=== PATIENT | female | born 1950 | race Caucasian/White ===

== ENCOUNTER 2021-07-17 00:54 | Day surgery (SDC) | payer MEDICARE, SELFPAY ==
[2021-07-16 15:13] VITALS: BMI 39.9
--- NOTE | 2021-07-16 15:32 | PC.NURSE ---
Report to the Outpatient Waiting Room, entrance under the green pavilion located off [facility], at time ___0800____ on date ___07/16/21____. OR Time: ___999 . - You and your visitor will be asked a series of questions to screen for COVID 19 for your protection. - A mask is required within the hospital. Preoperative COVID Testing Requirements: NONE No COVID Test needed if: (proof is required; if not received patient will have Rapid Test prior to entry) - Patient has received COVID Vaccine at least 14 days prior to procedure date or - Patient has positive COVID test result within last 90 days of surgery date. COVID Test needed if above criteria is not met If not COVID vaccinated a COVID test must be conducted within 72 hours of surgery and patient is asked to isolate self from time of testing until procedure. You will go to the [facility] for your COVID testing. The [facility] is located at the corner of [address] [facility]. You will only be called if COVID results are positive and your surgeon may reschedule your elective surgery date. Patients may have clear liquids (water, carbonated beverages, clear teas, apple juice) until 3 hours prior to surgery (0700 AM) with a maximum of 20 ounces. - No food from midnight until time of surgery - Infants may have breast milk until 4 hours before surgery, infant formula 6 hours prior to surgery. - Children will be allowed to drink immediately following surgery. If applicable, please bring a bottle or sippy cup to assist with drinking. Juice, water, soda, and popsicles are readily available. For infants on formula, please bring formula the day of surgery. Pacifiers are allowed. Take the following medications with a SIP of water the morning of surgery: ___MEDROXYPROGESTERONE,___ Medications to discontinue per physician N/A Date to take last dose Please no make-up, nail puerto rican, hairspray, perfume, deodorant, or body powder the day of surgery. No jewelry (including any body piercings) or valuables the day of surgery, leave them at home. Please take a shower or bath the night before, or the morning of, surgery with an antibacterial soap. Wear comfortable, loose fitting clothing. Children are encouraged to wear pajamas. - Jewelry must be removed prior to entering the operating room. Rings and piercings that are not removed may be cut off. - The hospital will not accept responsibility for valuables. - Please leave all valuables, including medications, at home the day of surgery. If you are going home after surgery, a licensed commercial trailer truck driver must drive you home. - NO public transportation without another adult. - We recommend that an adult stay with you for 24 hours following discharge. - We also recommend that you do not drive, make important decision, drink alcoholic beverages, or take any drugs that were not prescribed by your health care provider for at least 24 hours after your discharge time. For Pediatric surgeries, we recommend two adults accompany the child home (only one inside the building at this time). One visitor will be allowed to accompany the patient into the hospital. Patients visitor will be instructed to remain with patient at all times or leave the building. We will allow the visitor to come back to the postoperative area when patient is ready. Follow any additional instructions given to you from your surgeon. Telephone instructions given to ___PT and asked if any additional questions and then verbalized understanding. Patient advised to call surgeon office or pre surgery nurse liaison [phone] if any additional questions.
--- NOTE | 2021-07-17 06:46 | P.PNAN_ITS ---
Anes - Eval Pre Procedure Procedure: Operation Date: 07/17/21 10:00 Proposed Procedures p Hysteroscopy Dilation and Curettage - Devyn Finnegan MD Date/Time: 07/17/21 06:46 Pre Op Diagnosis: post menopausal bleeding Patient Data Age: 70 Gender: F Height: 1.6 m Weight: 102.27 kg Allergies Allergy/AdvReac Type Severity Reaction Status Date / Time adhesive AdvReac SKIN Verified 07/16/21 15:09 IRRITATION hydrocodone AdvReac Nausea and Verified 07/16/21 15:09 Vomiting Home Medications Medication Instructions Recorded Confirmed Type allopurinol 300 mg PO BID 07/16/21 07/16/21 History ascorbic acid (vitamin C) [Vitamin 500 mg PO DAILY 07/16/21 07/16/21 History C] cholecalciferol (vitamin D3) 25 mcg PO DAILY 07/16/21 07/16/21 History magnesium 500 mg PO DAILY 07/16/21 07/16/21 History medroxyprogesterone 10 mg DAILY 07/16/21 07/16/21 History meloxicam 7.5 mg PO DAILY 07/16/21 07/16/21 History sitagliptin [Januvia] 100 mg DAILY 07/16/21 07/16/21 History Patient hx anesthesia problems: none Family hx anesthesia problems: none Results Review: All pre-operative results and documents have been reviewed as part of the pre-operative evaluation. [facility] Past Medical History Medical History (Updated 07/17/21 @ 06:49 by Devyn Hoyt MD) Breast cancer Chronic back pain Diabetes Morbid obesity Surgical History Surgical History (Updated 07/17/21 @ 06:49 by Devyn Hoyt MD) H/O arthroscopic knee surgery H/O laparoscopy History of section Social History Social History Smoking status: Never smoker Second hand tobacco smoke exposure: No Alcohol intake: never Substance use: never Substance use type: does not use Living arrangements: with family Spiritual care concerns: No Exam Day of Procedure 07/17/21 06:46 Patient weight: morbidly obese
--- NOTE | 2021-07-17 07:01 | P.HP_ITS ---
H&P: HPI History of Present Illness Date/Time: 07/17/21 07:01 Mood year old 1 para is postmenopausal by 20+ years admitted for hysteroscopy dilatation curettage secondary to bleeding. She is wheelchair- bound and history of a benign left ovarian cyst removal. Fairly had a D&C about 10 years ago which was negative. She does suffer from diabetes and has factor 5 laden deficiency. She had again a steroid shot and also bleeding and she has been bleeding since per our risks and benefits were reviewed by Chief Complaint: Postmenopausal bleeding Review of Systems Review of Systems: All systems reviewed & are unremarkable except as noted in HPI and below PMFSH Past Medical History Medical History Breast cancer Chronic back pain Diabetes Morbid obesity Surgical History Surgical History H/O arthroscopic knee surgery H/O laparoscopy History of section Social History Social History Smoking status: Never smoker Second hand tobacco smoke exposure: No Alcohol intake: never Substance use: never Substance use type: does not use Living arrangements: with family Spiritual care concerns: No Meds Home Medications and Allergies Home Medications Medication Instructions Recorded Confirmed Type allopurinol 300 mg PO BID 07/16/21 07/16/21 History ascorbic acid (vitamin C) [Vitamin 500 mg PO DAILY 07/16/21 07/16/21 History C] cholecalciferol (vitamin D3) 25 mcg PO DAILY 07/16/21 07/16/21 History magnesium 500 mg PO DAILY 07/16/21 07/16/21 History medroxyprogesterone 10 mg DAILY 07/16/21 07/16/21 History meloxicam 7.5 mg PO DAILY 07/16/21 07/16/21 History sitagliptin [Januvia] 100 mg DAILY 07/16/21 07/16/21 History Allergies Allergy/AdvReac Type Severity Reaction Status Date / Time adhesive AdvReac SKIN Verified 07/16/21 15:09 IRRITATION hydrocodone AdvReac Nausea and Verified 07/16/21 15:09 Vomiting Exam Const: General: no acute distress Eyes: General: appearance normal, both eyes and all related structures Neck: Neck: supple and no JVD Thyroid: thyroid normal Resp: Effort & Inspection: normal respiratory effort Auscultation: clear to auscultation bilaterally Cardio: Rate: regular rate Rhythm: regular rhythm GI: Inspection: non-distended GI Palp: Yes Soft to palpation, No Tenderness to palpation present (GI) and No Guarding due to palpation present (GI) Auscultation: normal bowel sounds Skin: General skin exam: no rashes or lesions noted Extrem: General: normal to inspection and no edema Psych: Mental Status: mental status grossly normal Affect: normal affect Assessment and Plan Additional Plan Impression: Postmenopausal bleeding Plan: Hysteroscopy/dilatation curettage
--- NOTE | 2021-07-17 07:03 | WPDHPUPDATE1 ---
History and Physical Update Update Date/Time: 07/17/21 07:03 History and Physical has been reviewed, including an updated exam of the patient. There are NO changes in the patient's condition. Risks, benefits, and alternatives have been discussed and questions answered. Patient agrees to proceed with procedure.
[2021-07-17] MEDS: ACETAMINOPHEN 500 MG TABLET 1000 MG PO (08:27)
[2021-07-17 08:30] VITALS: BP 145/69; PULSE 73; RESP 18; TEMP 36.1; O2SAT 98; BMI 44.1
[2021-07-17] MEDS: LACTATED RINGERS 1,000 ML 30 ML IV CONT (08:50)
[2021-07-17 08:54] LABS: Hematocrit 42.7 % (37.0-47.0); Hemoglobin 13.7 g/dL (12.0-15.0)
--- NOTE | 2021-07-17 09:05 | WPDANESEFPP ---
Anes - Eval Final PreProcedure Day of Procedure 07/17/21 09:05 Patient weight: morbidly obese Heart: regular rate and rhythm Lungs: clear to auscultation Airway: Mallampati scale class II Neurological: alert and oriented Last oral intake: >/= 8 hours ASA classification: III Emergent: no Anesthetic plan: proceed Anesthesia type and monitoring: general GIVS and standard monitoring Results Review: All pre-operative results and documents have been reviewed as part of the pre-operative evaluation. Informed Consent: The patient's anesthetic plan and its attendant risks and benefits were discussed with the patient/family/POA. Questions were solicited and answers provided to the satisfaction of the patient/family/POA.
--- NOTE | 2021-07-17 09:10 | SUR.PREOP ---
0800; PT STATES SHE GETS LYMPHEDEMA IN BILAT ARMS. ASKED PT IF SHE USUALLY HAS HER IV IN A FOOT. PT STATES NO, SHE WOULD LIKE THE IV IN EITHER ARM.
--- NOTE | 2021-07-17 09:49 | P.OP_ITS ---
Procedure Note - Detailed Date of Procedure 07/17/21 Pre-op Diagnosis post menopausal bleeding Post-op Diagnosis Same Procedure Performed Hysteroscopy/dilatation curettage Surgeon Devyn Finnegan MD Anesthesia MAC and Local Indications This 70-year-old female with postmenopausal bleeding follow injection with IM steroid Findings Uterus sounded to about 8cm. There were some blood clots that were present but node definitive evidence of pathology noted. She be noted this was a very difficult procedure secondary to the patient's obesity and none parity. Description of Procedure Patient was prepped draped in the normal sterile fashion placed in the dorsal lithotomy position. Under excellent IV sedation weighted speculum placed in posterior fornix vagina. Anterior lip of the cervix grasped with single-tooth tenaculum. 2.5cc of 1% xylocaine anesthesia placed at 2, 4, 8, 10:00 a.m. of the cervix. A long slender speculum was placed in the vagina and the fitch were noted to cava and lateral wall retractors were used and the cervix was grasped with a single-tooth tenaculum. 2.5cc of 1% xylocaine anesthesia placed at 2, 4, 8, 10:00 a.m. of the cervix. Serial dilatation with fragmented dilators per formed followed passes the 5. Hysteroscope using normal saline as visualizing medium. Some clots and irregularity were noted but no evidence of abnormal masses were seen. The uterus was scraped over the entire 360? removing a moderate amount of tissue until a good grating sound was heard. When no further tissue removed instruments removed all were accounted for. Blood loss was estimated at5cc. All sponge, needle, instrument counts were correct. There were no immediate complications Estimated Blood Loss 5 Drains No Packing No Pathology Yes Complications No immediate complications Condition Stable Disposition PACU
[2021-07-17 09:55] VITALS: BP 121/71; PULSE 80; RESP 20; O2SAT 100
[2021-07-17 09:57] LABS: Glucose Point of Care 144 mg/dl (65-105)
[2021-07-17 10:13] LABS: Anion Gap 11 mmol/L (8-16); Blood Urea Nitrogen 19 mg/dL (7-17); Calcium 9.3 mg/dL (8.4-10.2); Carbon Dioxide 25 mmol/L (22-30); Chloride 102 mmol/L (98-107); Estimated CRCL calculation 78 ml/min; Estimated Glomerular Filt Rate > 60; Glucose 156 mg/dL (65-110); Potassium 4.5 mmol/L (3.4-5.0); Sodium 138 mmol/L (137-145)
[2021-07-17] MEDS: fentaNYL CITRATE INJ (*CRX) 100 MCG/2 ML VIAL 25 MCG IV PUSH ×2 (10:24→10:27)
[2021-07-17 10:25] VITALS: BP 110/75; PULSE 62; RESP 16
== END 2021-07-17 11:00 | disposition home or self-care (01) ==
PROVIDERS: Visit Provider Obstetrics & Gynecology
PROC: 0U5B8ZZ Destruction of Endometrium, Via Natural or Artificial Opening Endoscopic (ICD-10-PCS; CPT 58563; principal; 2021-07-17 10:00)
DX: N95.0 Postmenopausal bleeding (principal); N85.8 Other specified noninflammatory disorders of uterus; E11.9 Type 2 diabetes mellitus without complications; Z79.84 Long term (current) use of oral hypoglycemic drugs; Z85.3 Personal history of malignant neoplasm of breast; E66.01 Morbid (severe) obesity due to excess calories; Z68.41 Body mass index [BMI] 40.0-44.9, adult
CPT/HCPCS: 58558; 36415; 80048; 82948; 85014; 85018; 88305; A9270; J2704; J3010; J7030; J7120

== ENCOUNTER 2024-01-30 02:22 | Day surgery (SDC) | payer MEDICARE, SELFPAY ==
[2024-01-24 09:31] VITALS: BMI 39.0
--- NOTE | 2024-01-24 09:32 | PC.NURSE ---
Report to the Outpatient Waiting Room, entrance under the green pavilion located off [facility], at time _1100_ on date _[id number]_. Planned Procedure Time: _1pm_.? Time changes happen often and if your time is changed the preop area will call you the afternoon before. - You and your visitor will be asked to self-screen and do not enter if you have any COVID symptoms. Please call surgeon if you need to reschedule. - A mask is optional within the hospital at this time. Patients may have clear liquids (water, carbonated beverages, clear teas, apple juice) until 3 hours prior to surgery with a maximum of 20 ounces. - No food from midnight until time of surgery and no smoking Take only the following medications with a SIP of water on the morning of surgery: ___None DO NOT STOP ANY OF YOUR OTHER PRESCRIPTION MEDICATIONS PRIOR TO SURGERY EXCEPT THE FOLLOWING Medications to discontinue per physician All vitamins____ Stop 01-27-2024 Please no make-up, nail azerbaijani, hairspray, perfume, deodorant, or body powder the day of surgery.? No jewelry (including any body piercings) or valuables the day of surgery, leave them at home.? Please take a shower or bath the night before, or the morning of, surgery with an antibacterial soap.? Wear comfortable, loose fitting clothing.? - Jewelry must be removed prior to entering the operating room.? Rings and piercings that are not removed may be cut off. - The hospital will not accept responsibility for valuables.? - Please leave all valuables, including medications, at home the day of surgery. If you are going home after surgery, a licensed tank wagon driver must drive you home.? - NO public transportation without another adult if you receive anesthesia. - We recommend that an adult stay with you for 24 hours following discharge. - We also recommend that you do not drive, make important decision, drink alcoholic beverages, or take any drugs that were not prescribed by your health care provider for at least 24 hours after your discharge time. Follow any additional instructions given to you from your surgeon. Telephone instructions given to __Cathy__and asked if any additional questions and then verbalized understanding. Patient advised to call surgeon office or pre surgery nurse liaison [phone] if any additional questions.
--- NOTE | 2024-01-26 07:31 | PM.IMHP ---
H&P: HPI History of Present Illness Date/Time: 01/26/24 07:31 Chief Complaint: Patient complains of a perivaginal infection Narrative: [age] year female severe diabetes and a draining abscess which was unable to be examined in the office secondary to large size and inability to the examined in the office. [facility] Past Medical History Medical History Acquired lymphedema of lower extremity Breast cancer Chronic back pain Diabetes Morbid obesity Surgical History Surgical History H/O arthroscopic knee surgery H/O elbow surgery H/O laparoscopy H/O wrist surgery History of section Hx laparoscopic cholecystectomy Hx of removal of ovary Social History Social History Smoking status: Never smoker Second hand tobacco smoke exposure: No Alcohol intake: never Substance use: never Substance use type: does not use Living arrangements: with family Gender identity (if verbalized by the patient): Female Sexual Orientation (if Verbalized by the Patient): Straight or Heterosexual Spiritual care concerns: No Meds Home Medications and Allergies Home Medications Medication Instructions Recorded Confirmed Type allopurinol 300 mg tablet 300 mg PO BID 07/16/21 01/24/24 History ascorbic acid (vitamin C) 500 mg 500 mg PO DAILY 07/16/21 01/24/24 History tablet (Vitamin C) cholecalciferol (vitamin D3) 25 25 mcg PO DAILY 07/16/21 01/24/24 History mcg (1,000 unit) capsule magnesium 500 mg tablet 500 mg PO DAILY 07/16/21 01/24/24 History sitagliptin phosphate 100 mg 100 mg PO DAILY 07/16/21 01/24/24 History tablet (Januvia) doxycycline hyclate 100 mg capsule 100 mg PO DAILY 01/24/24 01/24/24 History hydroxyzine HCl 25 mg tablet 25 mg PO DAILY PRN Anxiety 01/24/24 01/24/24 History Allergies Allergy/AdvReac Type Severity Reaction Status Date / Time codeine Allergy Severe Difficulty Verified 01/24/24 09:19 Breathing hydrocodone Allergy Severe Difficulty Verified 01/24/24 09:19 Breathing adhesive AdvReac SKIN Verified 01/24/24 09:19 IRRITATION Exam Const: General: cooperative and comfortable Nutritional Appearance: obese Orientation/consciousness: oriented to person, oriented to place and oriented to time HENMT: Head: normal to inspection Resp: Effort & Inspection: normal respiratory effort Cardio: Rate: regular rate Rhythm: regular rhythm Heart sounds: S1 normal heart sound present and S2 normal heart sound present GI: Inspection: Pannus present and obesity : External Female Exam: other (Draining lesion the left groin) Assessment and Plan Assessment and plan (1) Perineal abscess: Code(s): L02.215 - Cutaneous abscess of perineum Status: Acute Assessment and Plan: Proceed with biopsy and drainage of this lesion
--- NOTE | 2024-01-30 06:50 | WPDHPUPDATE1 ---
History and Physical Update Update Date/Time: 01/30/24 06:50 History and Physical has been reviewed, including an updated exam of the patient. There are NO changes in the patient's condition. Risks, benefits, and alternatives have been discussed and questions answered. Patient agrees to proceed with procedure.
--- NOTE | 2024-01-30 10:59 | PM.IMHP ---
H&P: HPI History of Present Illness Date/Time: 01/30/24 10:59 Chief Complaint: chronic left perineal abscess Narrative: Cassie is a 73 y/o female who presents to the office today at the request of Dr. Devyn Vaughan for an evaluation of a left groin abscess. Patient reports she has noticed this abscess 8-9 months ago and it has drained several times. Patient states she has tried several antibiotic creams without relief. Patient reports pain, fevers, chills and bloody drainage/discharge. Patient has a history of breast cancer in 2004. Review of Systems Review of Systems: All systems reviewed & are unremarkable except as noted in HPI and below PMFSH Past Medical History Medical History Acquired lymphedema of lower extremity Breast cancer Chronic back pain Diabetes Morbid obesity Surgical History Surgical History H/O arthroscopic knee surgery H/O elbow surgery H/O laparoscopy H/O wrist surgery History of section Hx laparoscopic cholecystectomy Hx of removal of ovary Social History Social History Smoking status: Never smoker Second hand tobacco smoke exposure: No Alcohol intake: never Substance use: never Substance use type: does not use Living arrangements: with family Gender identity (if verbalized by the patient): Female Sexual Orientation (if Verbalized by the Patient): Straight or Heterosexual Spiritual care concerns: No Meds Home Medications and Allergies Home Medications Medication Instructions Recorded Confirmed Type allopurinol 300 mg tablet 300 mg PO BID 07/16/21 01/30/24 History ascorbic acid (vitamin C) 500 mg 500 mg PO DAILY 07/16/21 01/30/24 History tablet (Vitamin C) cholecalciferol (vitamin D3) 25 25 mcg PO DAILY 07/16/21 01/30/24 History mcg (1,000 unit) capsule magnesium 500 mg tablet 500 mg PO DAILY 07/16/21 01/30/24 History sitagliptin phosphate 100 mg 100 mg PO DAILY 07/16/21 01/30/24 History tablet (Januvia) doxycycline hyclate 100 mg capsule 100 mg PO DAILY 01/24/24 01/30/24 History hydroxyzine HCl 25 mg tablet 25 mg PO DAILY PRN Anxiety 01/24/24 01/30/24 History Allergies Allergy/AdvReac Type Severity Reaction Status Date / Time codeine Allergy Severe Difficulty Verified 01/30/24 12:49 Breathing hydrocodone Allergy Severe Difficulty Verified 01/30/24 12:49 Breathing adhesive AdvReac SKIN Verified 01/30/24 12:49 IRRITATION Exam Const: General: cooperative, no acute distress, ill appearing and obese Resp: Auscultation: diminished lung sounds Cardio: Rate: regular rate Rhythm: regular rhythm GI: Inspection: normal to inspection : Other: deferred until OR Skin: Other: R posterior upper arm skin lz L axillary yashira cyst Assessment and Plan Assessment and plan (1) Perineal abscess: Code(s): L02.215 - Cutaneous abscess of perineum Status: Acute Assessment and Plan: will setup for exc bx (2) Skin lesion: Code(s): L98.9 - Disorder of the skin and subcutaneous tissue, unspecified Status: Acute Assessment and Plan: will setup for exc bx (3) Sebaceous cyst of left axilla: Code(s): L72.3 - Sebaceous cyst Status: Acute Assessment and Plan: will setup for exc bx
--- NOTE | 2024-01-30 11:41 | WPDANESEPPF ---
Anes - Initial Pre Proc Eval Procedure: Operation Date: 01/30/24 13:00 Proposed Procedures p Excisional Biopsy of Left Perineal Chronic Abscess Cavity, Right Posterior Shoulder Skin Lesion, Left Axillary Cyst - Sosa Asher MD s Examination Under Anesthesia, Labia Biopsy - Devyn Vaughan MD Date/Time: 01/30/24 11:41 Surgeon: Sosa Asher MD Pre Op Diagnosis: lt perineal abscess,rt posterior shoulder lesion Patient Data Age: 73 Gender: F Height: 1.6 m Weight: 100 kg Allergies Allergy/AdvReac Type Severity Reaction Status Date / Time codeine Allergy Severe Difficulty Verified 01/24/24 09:19 Breathing hydrocodone Allergy Severe Difficulty Verified 01/24/24 09:19 Breathing adhesive AdvReac SKIN Verified 01/24/24 09:19 IRRITATION Home Medications Medication Instructions Recorded Confirmed Type allopurinol 300 mg tablet 300 mg PO BID 07/16/21 01/24/24 History ascorbic acid (vitamin C) 500 mg 500 mg PO DAILY 07/16/21 01/24/24 History tablet (Vitamin C) cholecalciferol (vitamin D3) 25 25 mcg PO DAILY 07/16/21 01/24/24 History mcg (1,000 unit) capsule magnesium 500 mg tablet 500 mg PO DAILY 07/16/21 01/24/24 History sitagliptin phosphate 100 mg 100 mg PO DAILY 07/16/21 01/24/24 History tablet (Januvia) doxycycline hyclate 100 mg capsule 100 mg PO DAILY 01/24/24 01/24/24 History hydroxyzine HCl 25 mg tablet 25 mg PO DAILY PRN Anxiety 01/24/24 01/24/24 History Patient hx anesthesia problems: none Family hx anesthesia problems: none Results Review: All pre-operative results and documents have been reviewed as part of the pre-operative evaluation. [facility] Past Medical History Medical History Acquired lymphedema of lower extremity Breast cancer Chronic back pain Diabetes Morbid obesity Surgical History Surgical History H/O arthroscopic knee surgery H/O elbow surgery H/O laparoscopy H/O wrist surgery History of section Hx laparoscopic cholecystectomy Hx of removal of ovary Social History Social History Smoking status: Never smoker Second hand tobacco smoke exposure: No Alcohol intake: never Substance use: never Substance use type: does not use Living arrangements: with family Gender identity (if verbalized by the patient): Female Sexual Orientation (if Verbalized by the Patient): Straight or Heterosexual Spiritual care concerns: No Anes - Eval Final PreProcedure Day of Procedure 01/30/24 11:41 Patient weight: obese Heart: regular rate and rhythm Lungs: clear to auscultation Airway: Mallampati scale class III Neurological: alert and oriented Last oral intake: >/= 8 hours ASA classification: III Emergent: no Anesthetic plan: proceed Anesthesia type and monitoring: general LMA and standard monitoring Results Review: All pre-operative results and documents have been reviewed as part of the pre-operative evaluation. Informed Consent: The patient's anesthetic plan and its attendant risks and benefits were discussed with the patient/family/POA. Questions were solicited and answers provided to the satisfaction of the patient/family/POA.
[2024-01-30 11:48] LABS: Glucose Point of Care 154 mg/dl (65-105)
[2024-01-30 12:00] VITALS: BP 128/64; PULSE 84; RESP 16; TEMP 37.1; O2SAT 96
--- NOTE | 2024-01-30 13:03 | WPDHPUPDATE1 ---
History and Physical Update Update Date/Time: 01/30/24 13:03 History and Physical has been reviewed, including an updated exam of the patient. There are NO changes in the patient's condition. Risks, benefits, and alternatives have been discussed and questions answered. Patient agrees to proceed with procedure.
[2024-01-30] MEDS: ceFAZolin 2 GM/D5W 50 ML 2 GM/50 ML BAG IVPB (13:13)
--- NOTE | 2024-01-30 13:45 | W.PM.PROC2 ---
Procedure Note - Detailed Date of Procedure 01/30/24 Pre-op Diagnosis lt perineal abscess,rt posterior shoulder lesion Post-op Diagnosis Other (Left groin lesion right buttock lesion) Procedure Performed biopsy of left groin biopsy of right buttock exam under anesthesia Surgeon Devyn Vaughan MD Anesthesia General Indications 73-year-old disabled female with history of groin and irritation Findings small healing abscess left groin which was removed. There appeared to be a small abscess right but not which was removed. There were massive amounts of the pelvic congestion around the labia minora majora no lesions were palpated. Description of Procedure Patient was prepped draped in normal sterile fashion placed in dorsal lithotomy position. Under excellent general in a anesthesia the the left groin was noted to have a small lesion that appeared to be the was completely healed elliptical incision was made it was removed in its entirety of about 1cm in length. Was closed with running 3-0 Monocryl. In similar fashion down on the right. The buttocks was a small abscess this was opened and incised in an elliptical fashion removed passed off the table for pathology closed with running 3-0 Monocryl. Blood loss for this procedure was 5cc all sponge, needle, instrument counts were correct. Dr. Lara did some removal of lesions above Estimated Blood Loss 5 Drains No Packing No Pathology Yes Complications No immediate complications Condition Stable Disposition No change
--- NOTE | 2024-01-30 14:11 | W.PM.PROC2 ---
Procedure Note - Detailed Date of Procedure 01/30/24 Pre-op Diagnosis Left axillary cystic mass, right posterior shoulder skin lesion Post-op Diagnosis Same Procedure Performed excisional biopsy left axillary cystic mass measuring 2 x 1 cm, excisional biopsy right posterior shoulder skin lesion measuring 1 x 1 cm Surgeon Sosa Asher MD Anesthesia General and Local Indications 73-year-old female presenting to the office with left axillary cystic mass and right posterior shoulder skin lesion. The patient reports that these areas have become more symptomatic and larger over time. Findings Left axillary cystic mass subtle most consistent with lipoma, right posterior shoulder skin lesion raised Description of Procedure The patient was taken to the operating room and placed in the modified lithotomy position. After adequate induction of general anesthesia, the patient was prepped and draped in the normal sterile fashion. A time-out was then done to patient's identity, as well as the procedure being performed. Dr. Portillo performed a pelvic exam as well as biopsies for chronic abscesses in the perineal. Please see his full operative report for details of his procedure. At this point, I locally anesthetized the nodule in the left axilla. I then made an elliptical incision encompassing the dermis over this lesion. Once through the dermis into the subcutaneous tissue, a hard nodular mass was noted. This did not seem to be a sebaceous cyst and more of a lipoma. This was removed in full and sent to pathology for further review. The area measured approximately 2 x 1 cm. No other masses or pathology were noted in the subcutaneous tissue the left axilla. I then closed the subcutaneous tissue with 3-0 Monocryl suture. The skin was closed with 4-0 Monocryl subcuticular suture. Dermabond was placed on the wound. I then localized the area around this raised skin lesion in the right posterior shoulder. I then used a 15 blade scalpel to excise this mass. I did excise some of the underlying subcutaneous tissue. This area measured 1 x 1 cm and will be sent to pathology for further review. Hemostasis was obtained with the Bovie cautery. No other pathology was noted in the area. A simple interrupted 4-0 Monocryl stitch was placed. Dermabond was placed. The patient tolerated these procedures well and was extubated postoperatively. She will be transferred to the recovery room in stable condition. Estimated Blood Loss 5 Pathology Yes Complications No immediate complications Condition Stable Disposition PACU [facility] Billing Surgery - Charge Forward: Surgery Billing
[2024-01-30 14:12] VITALS: BP 131/72; PULSE 96; RESP 24; TEMP 36.6; O2SAT 100
[2024-01-30] MEDS: LACTATED RINGERS 1,000 ML 30 ML IV CONT (14:12)
[2024-01-30 14:18] LABS: Glucose Point of Care 145 mg/dl (65-105)
[2024-01-30 14:27] VITALS: BP 117/90; PULSE 86; RESP 19; O2SAT 100
[2024-01-30 14:41] VITALS: BP 129/72; PULSE 84; RESP 17; O2SAT 95
[2024-01-30 14:50] VITALS: BP 140/68; PULSE 89; RESP 16
[2024-01-30] MEDS: ACETAMINOPHEN 500 MG TABLET 1000 MG PO (15:11)
[2024-01-30 15:20] VITALS: BP 128/70; PULSE 86; RESP 16
== END 2024-01-30 15:42 | disposition home or self-care (01) ==
PROVIDERS: Obstetrics & Gynecology; Visit Provider Surgery
PROC: (CPT 11402; principal; 2024-01-30 13:00)
PROC: (CPT 11401; 2024-01-30 13:00)
DX: L98.8 Other specified disorders of the skin and subcutaneous tissue (principal); L72.0 Epidermal cyst; D36.12 Benign neoplasm of peripheral nerves and autonomic nervous system, upper limb, including shoulder; L02.215 Cutaneous abscess of perineum; G89.29 Other chronic pain; M54.9 Dorsalgia, unspecified; E11.9 Type 2 diabetes mellitus without complications; E66.9 Obesity, unspecified; Z68.41 Body mass index [BMI] 40.0-44.9, adult; Z79.84 Long term (current) use of oral hypoglycemic drugs; Z98.890 Other specified postprocedural states; Z90.49 Acquired absence of other specified parts of digestive tract; Z85.3 Personal history of malignant neoplasm of breast
CPT/HCPCS: 11402; 12031; 11401 ×3; 82948; 88305; A9270; J0690; J1100; J2405; J2704; J3010; J7120

== ENCOUNTER 2024-02-15 11:32 | Emergency (ER) | payer OTHER, MEDICARE, SELFPAY ==
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
[2024-02-15 11:35] VITALS: BP 132/71; PULSE 85; RESP 18; TEMP 36.5; O2SAT 95
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
--- NOTE | 2024-02-15 12:17 | ECG_ITS ---
Test Date: 2024-02-15 12:29:01 Measurements Intervals [place] Rate: 79 P: 14 MA: 158 QRS: -45 QRSD: 106 T: 28 QT: 392 QTc: 449 Interpretive Statements SINUS RHYTHM LOW QRS VOLTAGE IN PRECORDIAL LEADS [QRS DEFLECTION < 1.0 mV IN CHEST LEADS] LEFT ANTERIOR FASCICULAR BLOCK [QRS AXIS <= -45, QR IN I, RS IN II] POSSIBLE ANTERIOR MYOCARDIAL INFARCTION , OF INDETERMINATE AGE [30 ms Q WAVE IN V3/V4, OR R < 0.2 mV IN V4] NONSPECIFIC T-WAVE ABNORMALITY ABNORMAL ECG No previous ECG available for comparison Electronically Signed On 02-15-2024 13:49:25 CDT by Joshua Barragan M.D.
[2024-02-15 12:42] LABS: Basophils Absolute Auto 0.1 K/mm3 (0.0-0.1); Basophils Percent Auto 0.4 % (0.2-1.2); Eosinophils Absolute Auto 0.2 K/mm3 (0-0.3); Eosinophils Percent Auto 1.8 % (0-4.4); Hematocrit 41.7 % (37.0-47.0); Hemoglobin 13.5 g/dL (12.0-15.0); Immature Granulocyte Absolute 0.04 K/mm3 (0.00-0.031); Immature Granulocyte Percent A 0.3 % (0-0.5); Lymphocytes Absolute Auto 3.01 K/mm3 (0.9-3.2); Lymphocytes Percent Auto 26.1 % (18.3-44.2); Mean Corpuscular HGB Conc 32.4 g/dl (32-36); Mean Corpuscular Hemoglobin 31.2 pg (26-34); Mean Corpuscular Volume 96.3 fl (80-100); Mean Platelet Volume 10.4 fl (7.4-10.4); Monocytes Absolute Auto 0.9 K/mm3 (0.1-0.6); Monocytes Percent Auto 7.9 % (2.6-8.5); Neutrophils Absolute Auto 7.3 K/mm3 (1.3-6.7); Neutrophils Percent Auto 63.5 % (45.5-73.1); Platelet Count Result 313 k/mm3 (150-375); Red Blood Count 4.33 M/mm3 (4.2-5.4); White Blood Count 11.5 K/mm3 (4.5-10.0)
[2024-02-15 12:53] LABS: Alanine Aminotransferase 28 U/L (6-35); Albumin Level 4.6 g/dL (3.5-5.1); Alkaline Phosphatase 78 U/L (38-126); Anion Gap 10 mmol/L (4-12); Aspartate Amino Transferase 28 U/L (14-36); Bilirubin,Total 0.4 mg/dL (0.2-1.3); Blood Urea Nitrogen 11 mg/dL (7-17); Calcium 9.6 mg/dL (8.4-10.2); Carbon Dioxide 28 mmol/L (22-30); Chloride 99 mmol/L (98-107); Estimated CRCL calculation 70 ml/min; Estimated Glomerular Filt Rate > 60; Glucose 159 mg/dL (65-110); Potassium 3.7 mmol/L (3.4-5.0); Sodium 137 mmol/L (137-145)
[2024-02-15 13:05] LABS: Troponin I < 0.012 ng/mL (0.000-0.034)
== END 2024-02-15 14:51 | disposition home or self-care (01) ==
PROVIDERS: Emergency Provider Physician Assistant
DX: S16.1XXA Strain of muscle, fascia and tendon at neck level, initial encounter (principal); E11.9 Type 2 diabetes mellitus without complications; E66.01 Morbid (severe) obesity due to excess calories; Z68.39 Body mass index [BMI] 39.0-39.9, adult; Z85.3 Personal history of malignant neoplasm of breast; Z90.721 Acquired absence of ovaries, unilateral; Z90.49 Acquired absence of other specified parts of digestive tract; I44.4 Left anterior fascicular block; R94.31 Abnormal electrocardiogram [ECG] [EKG]; M47.816 Spondylosis without myelopathy or radiculopathy, lumbar region; Z79.84 Long term (current) use of oral hypoglycemic drugs; Z79.899 Other long term (current) drug therapy; V49.50XA Passenger injured in collision with unspecified motor vehicles in traffic accident, initial encounter
CPT/HCPCS: 36415; 71046; 71100; 72040; 72070; 72100; 73030; 80053; 84484; 85025; 93005; 99284